=== PATIENT | male | born 1995 | race Caucasian/White ===

== ENCOUNTER 2016-09-16 20:21 | Emergency (ER) | payer BC ==
[2016-09-16 21:08] VITALS: BP 120/69
[2016-09-16] MEDS ORDERED: Amoxicillin 500 MG Cap ONE (21:10)
--- NOTE | 2016-09-16 21:30 | EDM.PDOC ---
ED HPI GENERAL MEDICAL PROBLEM - General Chief Complaint: General Stated Complaint: TOOTHACHE Time Seen by Provider: 09/16/16 21:00 Source of Information: Reports: Patient History Limitations: Reports: No Limitations - History of Present Illness INITIAL COMMENTS - FREE TEXT/NARRATIVE: According to patient he has been having pain in his left upper incisors and canine tooth for about 1 wk now. Pain was dull achy type all week. he ah been taking OTC ibuprofen as needed. Since last nigh the has been having sharp to throbbing pain in the same teeth. Also he had low grade fever and hence he did come into emergency room. Duration: Week(s): (1) Severity: Moderate Improves with: Reports: None Worsens with: Reports: None Associated Symptoms: Denies: Chest Pain, Cough, Diaphoresis, Fever/Chills, Nausea/Vomiting, Rash, Seizure, Shortness of Breath Treatments BEER BREWER: Reports: Other (see below) Other Treatments BEER BREWER: ibuprophen Left Frontal Oral/Mouth Pain Score (Numeric/FACES): 9 - Related Data Allergies Allergy/AdvReac Type Severity Reaction Status Date / Time No Known Allergies Allergy Verified 09/16/16 21:12 Home Meds: Home Meds NK [No Known Home Meds] 09/16/16 [History] ED ROS GENERAL - Review of Systems Review Of Systems: See Below Constitutional: Reports: Fever. Denies: Chills HEENT: Reports: Dental Pain. Denies: Hearing Loss, Throat Pain, Throat Swelling Respiratory: Denies: Shortness of Breath, Cough, Sputum Cardiovascular: Denies: Chest Pain, Syncope GI/Abdominal: Denies: Abdominal Pain, Flatus, Nausea, Vomiting : Denies: Dysuria, Flank Pain Musculoskeletal: Denies: Joint Pain, Joint Swelling Skin: Denies: Pruritis, Rash ED EXAM, GENERAL - Physical Exam Exam: See Below Exam Limited By: No Limitations General Appearance: Alert, WD/WN, No Apparent Distress Eye Exam: Bilateral Eye: EOMI, PERRL Ears: Normal External Exam, Normal Canal, Hearing Grossly Normal, Normal TMs Ear Exam: Bilateral Ear: Auricle Normal, Canal Normal, TM normal Nose: Normal Inspection, Normal Mucosa, No Blood Throat/Mouth: Normal Inspection, Normal Lips, Normal Gums, Normal Oropharynx, Normal Voice, No Airway Compromise, Other (there is caries seen over the left canince tooth. also gingival swellingin the same area. He does have several teeth with fillings. tender to percussion voer the left canine tooth.) Head: Atraumatic, Normocephalic Course - Vital Signs Text/Narrative:: Pt has tooth infection in his left upper canine. I have started him on amox 500mg 3 times daily for 10 days. Lysterine mouth washes 3-4 times daily.Motrin 600mg 3 times daily. Benzocaine oragel. Followup with his Dentist on Sunday. Last Recorded V/S: Last Vital Signs Temp 98.9 F 09/16/16 21:07 Pulse 62 09/16/16 21:07 Resp 18 09/16/16 21:07 BP 120/69 09/16/16 21:07 Pulse Ox 100 09/16/16 21:07 Departure - Departure Time of Disposition: 21:30 Disposition: Home, Self-Care 01 Condition: Good Clinical Impression: Tooth infection - Discharge Information Instructions: Dental Caries, Dental Abscess, [id number] Forms: ED Department Discharge Additional Instructions: Amoxicillin 500mg PO three times a day for 10 days and f0llow up with dentist - Problem List & Annotations (1) Tooth infection SNOMED Code(s): 162392711 Code(s): K04.7 - PERIAPICAL ABSCESS WITHOUT SINUS Status: Acute - Problem List Review Problem List Initiated/Reviewed/Updated: Yes - Assessment/Plan Assessment:: Tooth infection Plan: Pt has tooth infection in his left upper canine. I have started him on amox 500mg 3 times daily for 10 days. Lysterine mouth washes 3-4 times daily.Motrin 600mg 3 times daily. Benzocaine oragel. Followup with his Dentist on Sunday.
== END 2016-09-16 21:15 | disposition home or self-care (01) ==
LOC: LB.ED 20:21
DX: K02.9 Dental caries, unspecified (principal)
CPT/HCPCS: 99282; A9270

== ENCOUNTER 2022-09-10 11:59 | Emergency (ER) | payer BC ==
[2022-09-10 12:30] VITALS: BP 122/74; PULSE 67
[2022-09-10] MEDS ORDERED: predniSONE 10 MG Tab ONE (13:00)
== END 2022-09-10 13:10 | disposition home or self-care (01) ==
LOC: LB.ED 11:59
DX: L50.9 Urticaria, unspecified (principal)
CPT/HCPCS: 99282; J7512